=== PATIENT | female | born 1985 | race Caucasian/White ===

== ENCOUNTER 2017-06-25 10:19 | Emergency (ER) | payer OTHER ==
[~2017-06-25] VITALS: Ht 157.5 cm; Wt 57.2 kg
[~2017-06-25 10:19] MED LIST: NORFLEX100 MG PO; SYNTHROID75 MCG; TORADOL10 MG PO
[2017-06-25] MEDS ORDERED: SYNTHROID88 MCG (10:26)
== END 2017-06-26 08:57 | disposition home or self-care (01) ==
LOC: ER 10:19
DX: K52.9 Noninfective gastroenteritis and colitis, unspecified (principal)